=== PATIENT | female | born 1930 | race Caucasian/White ===

== ENCOUNTER → 2017-12-20 | Outpatient (CLI) | payer MEDICARE, OTHER ==
[~2017-12-20] MED LIST: ASPIRIN E.C. 8181 MG PO; BETAPACE 120MG120 MG PO; DIOVAN; ELIQUIS 2.5 PO; EXFORGE 10 MG-31 TAB PO; EXFORGE 10/320 PO; EXFORGE 5/320 PO; FOLIC ACID PO; KLOR-CON 1010 MEQ PO; LASIX 40MG TABL40 MG PO; LEVOTHYROXINE PO; LOPRESSOR 550 MG/TAB PO; NORMODYNE100 MG PO; NORMODYNE200 MG PO; POLY IRON PO; PREMARIN .3MG0.3 MG PO; PREMARIN 0.60.625 MG PO; PREMARIN0.625 MG PO; SIMVASTATIN10 MG PO; SYNTHROID0.05 MG/TA PO; VITAMIN C250250 MG PO; VITAMIN D PO; VITAMIN D31000 IU PO; ZOCOR 10MG10 MG PO
== END ==
LOC: COL.RAD 12:23
DX: S40.022A Contusion of left upper arm, initial encounter (principal)

== ENCOUNTER 2018-12-11 20:29 | Emergency (ER) | payer MEDICARE, OTHER ==
[~2018-12-11] VITALS: Ht 160 cm; Wt 63.6 kg
[2018-12-11 20:43] VITALS: TEMP 97
[2018-12-11 23:22] LABS: BASO % 0.2 % (0.0-2.0); GRAN # 4.4 (1.4-6.5); GRAN % 81.4 % (42.2-75.2); HEMATOCRIT 44.5 % (37.0-47.0); HEMOGLOBIN 14.8 g/dl (12.5-16.0); LYMPH # 0.9 (1.2-3.4); LYMPH % 17.1 % (20.0-51.0); MEAN CELL VOLUME 92 fl (80.0-100.0); MEAN CORPUSCULAR HEMOGLOBIN 31 pg (27.0-31.0); MEAN CORPUSCULAR HGB CONC 33 g/dl (33.0-37.0); MEAN PLATELET VOLUME 10.4 fl (7.4-10.4); MONO # 0.1 (0.1-0.6); MONO % 0.9 % (1.7-9.3); PLATELET COUNT 158 K/mm3 (130-400); RED BLOOD COUNT 4.82 M/mm3 (4.10-5.30); REDCELL DISTRIBUTION WIDTH-CV 12.5 % (11.5-14.5)
[2018-12-11 23:28] LABS: ALANINE AMINOTRANSFERASE 16 U/L (9-52); ALKALINE PHOSPHATASE 97 U/L (50-136); ANION GAP 8 mmol/L (7-16); AST,SGOT 41 U/L (15-37); BILIRUBIN,TOTAL 0.6 mg/dL (0.0-1.0); BLOOD UREA NITROGEN 22 mg/dL (7-17); CALCIUM 9.7 mg/dL (8.4-10.2); CARBON DIOXIDE 26 mmol/L (22-30); CHLORIDE 102 mmol/L (98-107); GLUCOSE 183 mg/dL (74-106); POTASSIUM 4.4 mmol/L (3.4-5.0); SODIUM 136 mmol/L (137-145); TOTAL PROTEIN 8.1 gm/dL (6.4-8.2)
[2018-12-11 23:40] LABS: TROPONIN-I < 0.012 ng/mL (0.000-0.035)
[2018-12-11] MEDS ORDERED: ANTIVERT 12.512.5 MG PO (23:40)
[2018-12-12] MEDS ORDERED: DOXYCYCLINE HY100 MG PO (00:38)
[2018-12-12 01:33] VITALS: BP 135/72; PULSE 69
== END 2018-12-12 01:00 | disposition home or self-care (01) ==
LOC: COL.ER 20:29
PROVIDERS: Emergency Medicine
DX: J32.9 Chronic sinusitis, unspecified (principal); R42 Dizziness and giddiness; I48.91 Unspecified atrial fibrillation; I10 Essential (primary) hypertension; E78.5 Hyperlipidemia, unspecified; E03.9 Hypothyroidism, unspecified; Z90.49 Acquired absence of other specified parts of digestive tract; Z95.5 Presence of coronary angioplasty implant and graft; Z90.710 Acquired absence of both cervix and uterus; Z79.01 Long term (current) use of anticoagulants; Z79.82 Long term (current) use of aspirin